=== PATIENT | female | born 1935 | race Caucasian/White ===

== ENCOUNTER → 2016-11-25 | Outpatient (CLI) | payer OTHER, BC | LOC: MMPC 09:00 | PROVIDERS: ATTEND Obstetrics & Gynecology | DX: N76.0 Acute vaginitis (principal) | CPT/HCPCS: 87210; 99213; G0463 ==

== ENCOUNTER → 2017-03-31 | Outpatient (CLI) | payer OTHER, BC | LOC: MMPC 09:00 | PROVIDERS: ATTEND Obstetrics & Gynecology | DX: N99.3 Prolapse of vaginal vault after hysterectomy (principal); N76.0 Acute vaginitis | CPT/HCPCS: 99213; G0463 ==